=== PATIENT | male | born 1960 | race Caucasian/White ===

== ENCOUNTER 2020-12-14 12:47 | Emergency (ER) | payer OTHER ==
[~2020-12-14] VITALS: Ht 175.3 cm; Wt 125.0 kg
[2020-12-14] MEDS ORDERED: PERCOCET 325 MG1 TA2 PO (15:24)
[2020-12-14 16:17] VITALS: BP 152/88; PULSE 63
== END 2020-12-14 16:20 | disposition home or self-care (01) ==
LOC: COL.ER 12:47
DX: S49.91XA Unspecified injury of right shoulder and upper arm, initial encounter (principal); I10 Essential (primary) hypertension; E66.9 Obesity, unspecified; Z68.41 Body mass index [BMI] 40.0-44.9, adult; W10.8XXA Fall (on) (from) other stairs and steps, initial encounter
CPT/HCPCS: J1170; J3010